=== PATIENT | male | born 1940 | race African-American/Black ===

== ENCOUNTER 2016-04-09 07:04 | Emergency (ER) | payer BC ==
[2016-04-09 07:21] VITALS: BP 167/77
[2016-04-09] MEDS ORDERED: Acetaminophen TAB* 325 MG PO ONE (07:24)
--- NOTE | 2016-04-09 07:34 | UC ---
FLU HPI - HPI Summary HPI Summary: cough, fever last night, ST, feels lousy since yest. 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 States he has been dizzy with this illness and then this morning fell back on the bed. Did not hit his head. No LOC. - History of Current Complaint Chief Complaint: UCRespiratory Stated Complaint: COUGH,THROAT,FEVER Time Seen by Provider: 04/09/16 07:16 Hx Obtained From: Patient Onset/Duration: Gradual Onset, Lasting Days - 2, Still Present, Worse Since - this am Severity Currently: Severe Severity Initially: Moderate Pain Intensity: 9 - head and chest Pain Scale Used: 0-10 Numeric Associated Signs & Symptoms: Positive: Fever, F/C, Myalgia, Cough, Sore Throat, Nasal Congestion, Headache. Negative: Vomiting, Diarrhea Related Hx: Possible Flu/Infectious Exposure - business objects architect - Risk Factors Influenza Risk Factors: Age 65 y/o or Older - Allergy/Home Medications Allergies/Adverse Reactions: Allergies Allergy/AdvReac Type Severity Reaction Status Date / Time Morphine and Related Allergy Severe RASH/HIVES Verified 04/09/16 07:16 Home Medications: Home Medications Colchicine TAB* 0.6 mg PO DAILY PRN 04/09/16 [History Confirmed 04/09/16] PMH/Surg Hx/FS Hx/Imm Hx Endocrine History Of: Reports: Thyroid Disease - Hypothyroidism Denies: Diabetes Cardiovascular History Of: Reports: Cardiac Disorders - Dyslipidemia, Hypertension Respiratory History Of: Denies: COPD, Asthma GI/ History Of: Denies: Ulcer Psychological History Of: Reports: Anxiety - Surgical History Surgical History: Yes Surgery Procedure, Year, and Place: LEFT MASTECTOMY, AND THYMUS GLAND REMOVAL. 4- back surgeries. gallbladder. right eye surgery. bilat eye lens implants. 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 Alcohol Use: None Substance Use Type: None Smoking Status (MU): Former Smoker Type: Cigarettes Length of Time of Smoking/Using Tobacco: 15 yrs Have You Smoked in the Last Year: No When Did the Patient Quit Smoking/Using Tobacco: 15 yrs ago - Immunization History Most Recent Influenza Vaccination: October 2015 Most Recent Pneumonia Vaccination: 2014 Review of Systems Constitutional: Fever, Chills Skin: Negative Eyes: Negative ENT: Sore Throat Respiratory: Cough Cardiovascular: Negative Gastrointestinal: Negative Genitourinary: Negative Motor: Negative Neurovascular: Negative Musculoskeletal: Myalgia Neurological: Headache Psychological: Negative All Other Systems Reviewed And Are Negative: Yes Physical Exam Triage Information Reviewed: Yes Appearance: Ill-Appearing, Pain Distress, Obese Vital Signs: Initial Vital Signs Temp 101.3 F 04/09/16 07:13 Pulse 72 04/09/16 07:13 Resp 18 04/09/16 07:13 BP 167/77 04/09/16 07:13 Pulse Ox 96 04/09/16 07:13 fever, elevated BP noted Vital Signs Reviewed: Yes Eyes: Positive: Conjunctiva Clear ENT: Positive: Pharyngeal erythema, TMs normal Neck exam: Normal Respiratory Exam: Normal Respiratory: Positive: Lungs clear, Normal breath sounds, No respiratory distress Cardiovascular: Positive: RRR, No Murmur, Pulses Normal, Brisk Capillary Refill Abdomen Description: Positive: Nontender, Soft Musculoskeletal: Positive: Strength Intact, ROM Intact, No Edema Neurological: Positive: Alert, Muscle Tone Normal Psychological Exam: Normal Skin Exam: Normal Flu Course/Dx - Course Course Of Treatment: influenza A positive - Differential Dx/Diagnosis Differential Diagnosis/HQI/PQRI: Bronchitis, Influenza, Pneumonia, Upper Respiratory Infection Provider Diagnoses: Influenza A Discharge - Discharge Plan Condition: Stable Disposition: HOME Prescriptions: Oseltamivir CAP* [Tamiflu CAP*] 75 mg PO BID #10 cap Patient Education Materials: Influenza (ED) Forms: *Work Release Referrals: Jean Carlos Velazquez MD [Primary Care Provider] -
== END 2016-04-09 07:53 | disposition home or self-care (01) ==
LOC: UCCORT 07:04
DX: J10.1 Influenza due to other identified influenza virus with other respiratory manifestations (principal); Z88.5 Allergy status to narcotic agent; Z87.891 Personal history of nicotine dependence
CPT/HCPCS: 87502; 99212; A9270-GY; G0463

== ENCOUNTER 2016-12-18 09:52 | Day surgery (SDC) | payer BC ==
[2016-12-18] MEDS ORDERED: Lidocaine 1% MPF wEPI 200,000* 30 ML SDV ONE (10:08)
[2016-12-18] MEDS ORDERED: Bupivacaine 0.25% SDV* 30 ML ONE (10:58)
[2016-12-18 11:55] VITALS: BP 151/96
--- NOTE | 2016-12-19 01:18 | OP ---
OPERATIVE REPORT: DATE OF OPERATION: 12/18/16 - [facility] DATE OF : 44 SURGEON: Rahul Haney MD KEY ACCOUNT MANAGER: MICHELLE Up ANESTHESIOLOGIST: None. ANESTHESIA: Local only with 1% lidocaine with epinephrine and bicarbonate. PRE-OP DIAGNOSES: 1. Right middle trigger finger. 2. Right ring trigger finger. 3. Left middle trigger finger. 4. Left ring trigger finger. POST-OP DIAGNOSES: 1. Right middle trigger finger. 2. Right ring trigger finger. 3. Left middle trigger finger. 4. Left ring trigger finger. 5. Right ring finger tendon sheath lesion. OPERATIVE PROCEDURE: 1. Release of A1 jose, right middle finger. 2. Release of A1 jose, right ring finger. 3. Release of A1 jose, left middle finger. 4. Release of A1 jose, left ring finger. 5. Excision of right ring finger tendon sheath lesion. INDICATIONS: Brady has had injection to trigger fingers that occurred. We had initial planned to do the right middle and ring and the left ring; however, when he came to the surgery center today about a month after I had seen him last , the left middle finger is also starting to trigger. We talked about risks and benefits. He wants to proceed with releases. ESTIMATED BLOOD LOSS: 5 mL. COMPLICATIONS: None. FINDINGS: There was a large nodule and lesion off of the right ring tendon sheath, which was excised and sent to the lab for pathology. DESCRIPTION OF PROCEDURE: Brady was seen in the preoperative holding area. The correct side, site, and procedure were identified and then, I infiltrated the operative areas with 1% lidocaine with epinephrine and bicarbonate. Short time later, we came back to the operating room where the arm was prepped and draped in the usual fashion and time-out was performed. I began by making a 1 cm longitudinal incision over the left ring finger A1 jose. Dissection was carried down bluntly and the soft tissue was freed off of the tendon sheath. The 15 blade was used to longitudinally incise the tendon sheath in line with the flexor tendons. The release was completed proximally and distally with the tenotomy scissors. I then made a 1 cm longitudinal incision over the left middle finger. The soft tissue was released bluntly off of the tendon sheath with the tenotomy scissors and then the Ragnell retractors were used to retract the soft tissue off the tendon sheath. I then incised the A1 jose longitudinally with the 15 blade and the release was extended proximally and distally with the tenotomy scissors. Once I had completed both releases, I had them open and close the hand multiple times. He could not induce any triggering or catching or clicking. We therefore irrigated out the wounds and the skin was closed with 4- 0 nylon suture. The wounds are dressed with Xeroform, 4x4s. The Mastisol was placed around the wounds and the Tegaderm was placed. We then turned our attention to the right hand where I made a 1 cm longitudinal incision over the right middle finger A1 jose. Soft tissue in similar fashion was freed off of the A1 jose and then the A1 jose was incised longitudinally with a 15 blade. This was extended proximally and distally with the tenotomy scissors. I finally made a 1 cm longitudinal incision over the right ring finger A1 jose. The soft tissue was released and there was a quite large nodule/ protruding ganglion cyst on the tendon sheath. I ellipsed this out and excised it and sent it off to the lab for pathology. I then released the remainder of the A1 jose in line with the tendons with a 15 blade and then extended the release proximally and distally with the tenotomy scissors. I then had him flex and extend the fingers multiple times. Again, there was absolutely no triggering. We irrigated out the wounds. Skin was closed with 4-0 nylon suture. Wounds were dressed with Xeroform, 4x4's, and then again, Mastisol was placed all around the wounds and the dressing was secured with a Tegaderm. He was then taken to recovery room in stable condition. [id number]/[facility] #: [id number] CHRIS
== END 2016-12-18 11:56 | disposition home or self-care (01) ==
LOC: OREAST 09:52
PROVIDERS: ATTEND Orthopaedic Surgery Hand Surgery
DX: M67.441 Ganglion, right hand (principal); M65.331 Trigger finger, right middle finger; M65.341 Trigger finger, right ring finger; M65.332 Trigger finger, left middle finger; M65.342 Trigger finger, left ring finger; Z79.899 Other long term (current) drug therapy; I10 Essential (primary) hypertension; E78.5 Hyperlipidemia, unspecified; I49.5 Sick sinus syndrome; Z95.0 Presence of cardiac pacemaker; M10.9 Gout, unspecified; M19.90 Unspecified osteoarthritis, unspecified site
CPT/HCPCS: 88304; J2001

== ENCOUNTER 2017-07-17 15:23 | Emergency (ER) | payer BC ==
--- OUTSIDE RECORDS SUMMARY | 2017-07-17 16:23 | XMS REPORT ---
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 Active Onset: 10/28/2010 Disorder of thyroid gland Fred Bejarano M.D. Active Family History Date Family Member(s) Problem(s) Comments First Brother Diabetes Paternal Grandmother Diabetes Social History Type Date Description Comments Marital Status Cigarette Use Quit 15 Years Ago ETOH Use Occasionally consumes alcohol Recreational Drug Use Never Used Drugs Smoking Patient is a former smoker Allergies, Adverse Reactions, Alerts Date Description Reaction Status Severity Comments 03/15/2007 Morphine active 05/08/2009 Bee Sting ANAPHYLACTIC active Medications Medication Date Status Form Strength Qnty SIG Indications Ordering Provider Fluticasone 07/30 Active Suspension 50mcg/Act 1unit 2 sprays Bejarano s each leandra Ibarra MJillianDJillian every day Omeprazole 04/[address] 40mg 30cap 1 po qd s Generic Fred, Please M.DJillian Lisinopril Active Tablets 40mg 1 PO qd Unknown /0000 Levothyroxine Active Tablets 100mcg 1 PO qd Unknown Sodium /0000 Sertraline HCL Active Tablets 100mg Unknown /0000 Nifedipine ER Active Tablets ER 90mg 24HR Hydralazine HCL Active Tablets 50mg Unknown Zolpidem Tartrate Active Tablets 10mg Unknown Allopurinol Active Tablets 300mg 1 by mouth Unknown every day Lorazepam Active Tablets 0.5mg 1 by mouth every 6 hours as needed Meloxicam Active Tablets 7.5mg 1 by mouth Unknown every day Oxycodone-Acetami Active Tablets 5-325mg 1-2 every Unknown nophen 6 hours as needed Tizanidine HCL Active Capsules 4mg 1 cap by mouth three times a day as needed Bystolic Active Tablets 1 by mouth every day Rosuvastatin Active Tablets Unknown Ciprodex 12/15 Hx Suspension 0.3-0.1% 1unit 5 gtts s right ear Fred, - bid M.D. 06/27 Prednisone 08/05 Hx Tablets 20mg 5tabs 1 po qd x 5 days Fred, - M.D. 09/05 Percocet 08/03 Hx Tablets 5-325mg 32tab 1-2 po q 4 s hours prn Fred, - for pain M.D. 09/05 Cephalexin 07/29 Hx Capsules 500mg 21cap one tab s three Fred, - times M.D. 09/05 Lorazepam 03/07 Hx Tablets 0.5mg 30tab one tab hs s Fred, - M.D. 10/22 Prednisone 11/27 Hx Tablets 10mg 30tab 1 po qam s Fred, - M.D. 05/12 Prednisone 11/12 Hx Tablets 20mg 15tab 1 po qd s Fred, - M.D. 05/12 Zolpidem Tartrate 07/01 Hx Tablets 10mg 30tab Bejarano s Fred, - M.D. 10/22 Zolpidem Tartrate 06/17 Hx Tablets 5mg 30tab one tab at s night Fred, - M.D. 07/01 Ativan 05/08 Hx Tablets 0.5mg 40tab take 1 s tab.p.o. 1 Fred, - hr. before M.D. 03/[place] if not effective take one more 2 hr. after the first pill Astepro 01/21 Hx Solution 137mcg/Sp 30ml 2 sprays ray each Fred, - nostril M.D. 03/07 once a day Singulair 07/11 Hx Tablets 10mg 30tab 1 PO qd X s 1 Mo Fred - M.D. 01/14 Nasacort Aq 07/11 Hx Aerosol 55mcg/Act 1unit 2 Sprays s Both Fred, - Nostrils M.D. 05/12 qd X 1Mo Synthroid Hx Tablets 100mcg 90tab 1 PO qd Bejarano, s Fred, - M.D. 03/07 Zocor Hx Tablets 40mg Unknown / - 03/[address] 40mg 30cap 1 PO qd 1 Unknown / s Month - 05/08 Hydrochlorot Hx 50mgS Unknown / - 10/22 Pepcid Hx Tablets 20mg Qday Unknown / - 10/28 Vicodin Hx Tablets 5-500mg 40tab 1-2 po q4h Unknown / s prn - 05/12 Zoloft Hx Tablets 100mg Unknown / - 03/07 Metoprolol Hx Tablets ER 50mg daily Unknown Succinate ER /0000 24HR - 03/07 Cyclobenzaprine Hx Tablets 10mg 30tab 1 by mouth Unknown HCL / s three - times a 03/07 day needed muscle spasm Simvastatin Hx Tablets 80mg hs Unknown /0000 - 10/04 Potassium / Hx Tablets ER 20Meq 60tab daily Unknown Chloride ER /0000 s - 10/15 Lorazepam Hx Tablets 0.5mg prn Unknown /0000 - 03/07 Metoprolol Hx Tablets ER 100mg Unknown Succinate ER /0000 24HR - 10/22 Flexeril 00 Hx Tablets 10mg 180ta Unknown /0000 bs - 10/22 Vital Signs Date Vital Result Comment 06/23/2017 Weight 218.00 lb Height 66 inches 5'6" BMI (Body Mass Index) 35.2 kg/m2 BP Systolic 161 mmHg BP Diastolic 96 mmHg Heart Rate 74 /min O2 % BldC Oximetry 95 % Body Temperature 97.6 F Benton Score 2 Pain Level 0 10/15/2016 Weight 208.00 lb Height 66 inches 5'6" BMI (Body Mass Index) 33.6 kg/m2 Heart Rate 68 /min O2 % BldC Oximetry 98 % Body Temperature 97.6 F Pain Level 0 10/05/2016 Weight 208.00 lb Height 66 inches 5'6" BMI (Body Mass Index) 33.6 kg/m2 BP Systolic 136 mmHg BP Diastolic 80 mmHg Heart Rate 77 /min O2 % BldC Oximetry 90 % Body Temperature 97.6 F Pain Level 0 04/02/2016 Weight 213.00 lb Height 66 inches 5'6" BMI (Body Mass Index) 34.4 kg/m2 BP Systolic 148 mmHg BP Diastolic 98 mmHg Heart Rate 91 /min O2 % BldC Oximetry 96 % Body Temperature 97.8 F Benton Score 2 Pain Level 0 01/31/2016 Weight 211.00 lb Height 66 inches 5'6" BMI (Body Mass Index) 34.1 kg/m2 BP Systolic 128 mmHg BP Diastolic 82 mmHg Heart Rate 73 /min O2 % BldC Oximetry 98 % Body Temperature 97.8 F Benton Score 3 09/16/2015 Weight 210.00 lb Height 66 inches 5'6" BMI (Body Mass Index) 33.9 kg/m2 BP Systolic 138 mmHg BP Diastolic 86 mmHg Heart Rate 94 /min O2 % BldC Oximetry 83 % Body Temperature 97.6 F 06/26/2015 BP Systolic 152 mmHg BP Diastolic 90 mmHg Heart Rate 64 /min O2 % BldC Oximetry 96 % Body Temperature 98.4 F 04/30/2015 Weight 212.00 lb Height 66 inches 5'6" BMI (Body Mass Index) 34.2 kg/m2 BP Systolic 164 mmHg BP Diastolic 98 mmHg Heart Rate 91 /min O2 % BldC Oximetry 96 % Body Temperature 98.5 F 11/13/2014 Weight 207.00 lb Height 66 inches 5'6" BMI (Body Mass Index) 33.4 kg/m2 Body Temperature 98.5 F 10/23/2014 Weight 207.00 lb Height 66 inches 5'6" BMI (Body Mass Index) 33.4 kg/m2 BP Systolic 136 mmHg BP Diastolic 88 mmHg Heart Rate 71 /min O2 % BldC Oximetry 98 % Body Temperature 97.8 F Pain Level 0 07/30/2014 Weight 206.12 lb Height 66 inches 5'6" BMI (Body Mass Index) 33.3 kg/m2 BP Systolic 164 mmHg BP Diastolic 80 mmHg Heart Rate 75 /min O2 % BldC Oximetry 97 % Body Temperature 98.1 F Benton Score 4 Pain Level 0 06/27/2013 Weight 210.38 lb Height 66 inches 5'6" BMI (Body Mass Index) 34.0 kg/m2 BP Systolic 122 mmHg BP Diastolic 72 mmHg Heart Rate 63 /min O2 % BldC Oximetry 97 % Body Temperature 98.1 F Benton Score 3/24 10/12/2012 Weight 211.00 lb Height 66 inches 5'6" BMI (Body Mass Index) 34.1 kg/m2 BP Systolic 150 mmHg BP Diastolic 100 mmHg Heart Rate 57 /min O2 % BldC Oximetry 97 % 09/05/2012 Weight 207.00 lb Height 66 inches 5'6" BMI (Body Mass Index) 33.4 kg/m2 BP Systolic 122 mmHg BP Diastolic 88 mmHg Heart Rate 88 /min O2 % BldC Oximetry 94 % Body Temperature 97.2 F 08/05/2012 Weight 216.25 lb Height 66 inches 5'6" BMI (Body Mass Index) 34.9 kg/m2 BP Systolic 142 mmHg Just took his med. BP Diastolic 100 mmHg Just took his med. Heart Rate 67 /min O2 % BldC Oximetry 97 % Body Temperature 97.9 F 05/17/2012 Weight 211.00 lb Height 66 inches 5'6" BMI (Body Mass Index) 34.1 kg/m2 BP Systolic 138 mmHg BP Diastolic 86 mmHg Heart Rate 74 /min O2 % BldC Oximetry 96 % Body Temperature 97.2 F 03/07/2012 Weight 216.00 lb Height 66 inches 5'6" BMI (Body Mass Index) 34.9 kg/m2 BP Systolic 166 mmHg BP Diastolic 90 mmHg Body Temperature 98.4 F 05/13/2011 Weight 203.00 lb Height 66 inches 5'6" BMI (Body Mass Index) 32.8 kg/m2 BP Systolic 120 mmHg BP Diastolic 84 mmHg Heart Rate 50 /min O2 % BldC Oximetry 92 % Body Temperature 96.3 F 11/12/2010 Weight 214.12 lb Height 66 inches 5'6" BMI (Body Mass Index) 34.6 kg/m2 Heart Rate 49 /min O2 % BldC Oximetry 98 % Body Temperature 97.2 F 10/28/2010 Weight 207.00 lb Height 66 inches 5'6" BMI (Body Mass Index) 33.4 kg/m2 BP Systolic 140 mmHg BP Diastolic 86 mmHg Heart Rate 56 /min O2 % BldC Oximetry 95 % Body Temperature 97.1 F 05/12/2010 Weight 207.50 lb Height 66 inches 5'6" BMI (Body Mass Index) 33.5 kg/m2 BP Systolic 130 mmHg BP Diastolic 80 mmHg Heart Rate 76 /min Body Temperature 97.0 F 01/14/2009 Weight 212.00 lb Height 66 inches 5'6" BMI (Body Mass Index) 34.2 kg/m2 BP Systolic 133 mmHg BP Diastolic 88 mmHg Heart Rate 96 /min O2 % BldC Oximetry 98 % Body Temperature 97.0 F 16.5 Neck 07/12/2007 Weight 216.00 lb Height 67 inches 5'7" BMI (Body Mass Index) 33.8 kg/m2 BP Systolic 124 mmHg BP Diastolic 86 mmHg 05/02/2007 Weight 219.00 lb Height 67 inches 5'7" BMI (Body Mass Index) 34.3 kg/m2 BP Systolic 142 mmHg BP Diastolic 96 mmHg Heart Rate 82 /min O2 % BldC Oximetry 97 % 03/15/2007 Weight 219.00 lb Height 67 inches 5'7" BMI (Body Mass Index) 34.3 kg/m2 BP Systolic 134 mmHg BP Diastolic 86 mmHg Heart Rate 85 /min O2 % BldC Oximetry 94 % Results Test Date Test Result H/L Range Note Basic Metabolic Panel 07/22/2012 Glucose 97 mg/dL 76-115 BUN 27 mg/dL High 5-23 Creatinine 1.6 mg/dL High 0.5-1.4 Glom Filtration Rate, Estimate 46 mL/min >60 If 55 mL/min >60 1 BUN/Creat 16.8 ratio Sodium 141 mmol/L 136-145 Potassium 4.4 mmol/L 3.5-5.1 Chloride 103 mmol/L 98-107 Carbon Dioxide 30 mEq/L High 18-29 Anion Gap 12 mEq/L 8-16 Calcium 9.7 mg/dL 8.5-10.1 CBC 07/22/2012 White Blood Count 5.8 K/uL 3.4-10.5 Red Blood Count 4.76 M/uL 4.20-5.80 Hemoglobin 13.9 gm/dL 12.8-17.0 Hematocrit 42.0 % 38.0-48.0 Mean Cell Volume 88.2 fl 80.0-96.0 Mean Corpuscular HGB 29.2 pg 27.0-33.0 Mean Corpuscular HGB Conc 33.1 g/dL 31.7-36.0 Platelet Count 146 K/uL Low 150-400 Red Cell Distri Width %CV 13.7 % 11.6-15.8 Mean Platelet Volume 12.4 fL High 6.6-10.6 Urine Screen 07/22/2012 Urine Color YELLOW Yellow Urine Clarity CLEAR Clear Urine Glucose - Dipstick NEGATIVE mg/dL Negative Urine Bilirubin - Dipstick NEGATIVE Negative Urine Ketone NEGATIVE mg/dL Negative Urine Specific [place] 1.015 1.010-1.030 Urine Blood NEGATIVE Negative Urine PH 6.5 6.5-7.5 Urine Protein - Dipstick NEGATIVE mg/dL Negative Urine Urobilinogen - Dipstick 1.0 E.U./dL 0.2-1.0 Urine Nitrite - Dipstick NEGATIVE Negative Urine Leuk Esterase NEGATIVE Negative TSH+Free T4 10/28/2010 Thyroid Stim Hormone 2.56 uIU/mL 0.49-4.67 2 Free T4 1.04 ng/dL 0.60-1.20 3 Laboratory test finding 10/28/2010 Thyroid Stim Hormone 2.56 uIU/mL 0.49- 4.67 4 Free T4 1.04 ng/dL 0.71-1.85 5 1 Note: Persistent reduction for 3 months or more in an eGFR <60 mL/min/1.73 m2 defines CKD. Patients with eGFR values >/=60 mL/min/1.73 m2 may also have CKD if evidence of persistent proteinuria is present. The original MDRD equation for estimated GFR is not valid for patients less than 18 years of age. Additional information may be found at www.kdoqi.org. [email or web address] QUERY: @EMR Pat ID: [id number] QUERY: @EMR Req #: [id number] QUERY: @EMR Pat ID: [id number] QUERY: @EMR Req #: [id number] QUERY: @EMR Pat ID: [id number] QUERY: @EMR Req #: [id number] REF range corrected and changed from 0.60-1.20 to 0.71-1.85 Procedures Date CPT Code Description Status 09/16/2015 47090 Tympanometry Completed 09/16/2015 07626 Tympanometry Completed 09/16/2015 59899 Audiometry, Comprehensive Completed 09/16/2015 22604 Audiometry, Comprehensive Completed 06/26/2015 84132 Tympanometry Completed 06/26/2015 72129 Tympanometry Completed 06/26/2015 45208 Audiometry, Comprehensive Completed 06/26/2015 22394 Audiometry, Comprehensive Completed 05/10/2015 99280 Anesthesia, Tympanotomy Completed 05/10/2015 34976 Tympanostomy, Gen. Anesth. Completed 11/13/2014 34099 Tympanometry Completed 11/13/2014 82308 Tympanometry Completed 11/13/2014 60874 Audiometry, Comprehensive Completed 11/13/2014 40640 Audiometry, Comprehensive Completed 11/09/2014 40656 Tympanostomy, Gen. Anesth. Completed 11/09/2014 15140 Anesthesia, Tympanotomy Completed 10/23/2014 79583 Audiometry, Comprehensive Completed 10/23/2014 70593 Audiometry, Comprehensive Completed 10/23/2014 93005 Tympanometry Completed 10/23/2014 24113 Tympanometry Completed 07/30/2014 54870 Tympanometry Completed 07/30/2014 66050 Tympanometry Completed 07/30/2014 38313 Audiometry, Comprehensive Completed 07/30/2014 91386 Audiometry, Comprehensive Completed 10/12/2012 29652 Tympanostomy, Local/Topical Anesthesia Completed 07/29/2012 39309 Endoscopy Nasal/Sinus W/Med Or Inf Orbital Wall Completed Decompression 07/29/2012 44645 Endoscopy Nasal/Sinus W/Med Or Inf Orbital Wall Completed Decompression 07/29/2012 17648 Stereotactic Computer-Assisted, Cranial, Extradural Completed 07/29/2012 39030 Stereotactic Computer-Assisted, Cranial, Extradural Completed 03/07/2012 74371 Nasal Endoscopy, Diag. Completed 10/28/2010 79112 Ultrasound Head/Neck Completed 04/10/2009 81829 Fiberoptic Laryngoscopy,Diag. Completed 07/12/2007 97984 Acoustic Reflex Testing Completed 07/12/2007 69363 Tympanometry Completed 07/12/2007 78464 Audiometry, Comprehensive Completed 06/29/2007 32398 Sleep Stage 4 Or More Cpap Titra Completed 03/15/2007 82293 Fiberoptic Laryngoscopy,Diag. Completed Encounters Type Date Location Provider CPT E/M Dx Office Visit 10/15/2016 1:00p [place] [address] Z96.22 Office Visit 10/05/2016 3:15p Main Office Fred Bejarano M.D. 91598 G47.33 E03.9 Z96.22 Office Visit 04/02/2016 10:15a [place] [address] G47.33 Office Visit 01/31/2016 11:45a Main Office Fred Bejarano M.D. 09392 G47.33 K21.9 E03.9 Office Visit 09/16/2015 3:00p Main Office Fred Bejarano M.D. 10450 H90.3 H66.93 Office Visit 06/26/2015 11:30a [place] [address] H90.3 H69.93 Office Visit 04/30/2015 4:00p Main Office Fred Bejarano M.D. 02800 H66.93 H90.6 Office Visit 10/23/2014 8:00a [place] [address] 389.22 381.81 Office Visit 07/30/2014 10:15a [place] [address] 327.23 381.81 Office Visit 06/27/2013 10:15a [place] [address] 327.23 Office Visit 09/05/2012 1:30p [place] [address] 376.30 381.01 Office Visit 05/17/2012 7:15a Main Office Fred Bejarano M.D. 10623 376.30 470 327.23 Office Visit 03/07/2012 4:15p Main Office Fred Bejarano M.D. 26659 376.30 470 327.23 244.9 780.52 Office Visit 05/13/2011 10:45a Main Office Fred Bejarano M.D. 56818 376.30 470 327.23 244.9 780.52 Office Visit 11/12/2010 10:45a Main Office Fred Bejarano M.D. 20375 376.30 470 327.23 Office Visit 10/28/2010 10:00a Main Office Fred Bejarano M.D. 34768 376.30 246.9 244.9 Office Visit 05/12/2010 10:00a Main Office Fred Bejarano M.D. 65389 327.23 780.52 Office Visit 06/17/2009 11:30a Main Office Fred Bejarano M.D. 48088 327.23 780.52 Office Visit 05/08/2009 10:00a Main Office Fred Bejarano M.D. 23101 327.23 780.53 530.81 470 389.03 381.81 300.09 Office Visit 04/10/2009 10:00a Main Office Fred Bejarano M.D. 26498 327.23 780.53 530.81 Office Visit 01/14/2009 10:00a Main Office Fred Bejarano M.D. 31059 327.23 780.53 470 Office Visit 07/12/2007 9:45a Main Office Fred Bejarano M.D. 69320 327.23 389.03 381.81 Office Visit 05/23/2007 10:30a Main Office Fred Bejarano M.D. 77810 327.23 Office Visit 05/02/2007 9:30a Main Office Fred Bejarano M.D. 72217 327.23 Office Visit 03/15/2007 9:45a Main Office Fred Bejarano M.D. 68960 327.23 750.15 Plan of Care No Information Available
--- OUTSIDE RECORDS SUMMARY | 2017-07-17 16:23 | XMS REPORT ---
:1940 External Reference #:[id number] Author Organization [facility] 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 , Active FACC Onset: 01/30/2016 Paroxysmal supraventricular Isrrael Selby M.D., Active tachycardia FACC Onset: 01/30/2016 Cardiac pacemaker in situ Isrrael Selby M.D., Active FACC Onset: 09/13/2015 Hyperlipidemia Isrrael Selby M.D., Active FACC Onset: 09/13/2015 Essential hypertension Isrrael Selby M.D., Active FACC Onset: 09/13/2015 Bradycardia, unspecified Isrrael Selby M.D., Active FACC Onset: 08/08/2015 Palpitations Isrrael Selby M.D., Active FACC Onset: 08/08/2015 Dyspnea Isrrael Selby M.D., Active FACC Family History Date Family Member(s) Problem(s) Comments General Non Contributory : (age 43 Father due to Cancer Years) Mother due to Ovarian Cancer () : (age 72 Mother due to No known family Years) history of CAD Onset: (age 70 Years) First Brother CAD needed CABG Social History Type Date Description Comments Lives With Diet Healthy, Well Balanced Occupation Currently Working ADL's/IADL's Independent with all ADL's Cigarette Use Quit 1989 ETOH Use Denies alcohol use Recreational Drug Use Denies Drug Use Daily Caffeine Current Caffeine User 3 cups daily Allergies, Adverse Reactions, Alerts Date Description Reaction Status Severity Comments 02/05/2010 Morphine active Rash, Itching 02/05/2010 Bee Sting active SOB, Swelling 01/29/2014 Demerol active 01/29/2014 Meperidine active Medications Medication Date Status Form Strength Qnty SIG Indications Ordering Provider Isosorbide Active Tablets ER 30mg 30tabs 1 by R06.02 Quynh Mononitrate ER 018 24HR mouth Simonetta every Rendon, day MSN, RESERVATIONIST Clopidogrel Active Tablets 75mg 30tabs 1 by R06.02 Quynh Bisulfate 018 mouth Simonetta every Rendon, day MSN, RESERVATIONIST Aspirin Active Tablets DR 81mg 1 by R06.02 Quynh 018 mouth Simonetta every Rendon, day MSN, RESERVATIONIST Bystolic Active Tablets 20mg 30tabs 1 by I47.1 Quynh 016 mouth Simonetta every Rendon, day MSN, RESERVATIONIST I47.2 I10 Nifedical XL 06/10/2015 Active Tablets ER 60mg 60tabs 1 by mouth Isrrael Figueroa 24HR daily Grace Selby, [facility] Levothyroxine Active Tablets 125mcg 1 po qd Unknown Sodium Lisinopril Active Tablets 40mg 1 po qd Unknown Sertraline HCL Active Tablets 100mg 1 1/2 po Unknown qd Ambien Active Tablets 10mg 15tabs 1 by mouth Unknown every night at bedtime as needed Omeprazole Active Capsules DR 20mg 90caps 1 by mouth Unknown every day Lorazepam Active Tablets 0.5mg 30tabs 1 by mouth Unknown as needed Allopurinol Active Tablets 300mg 1 by mouth Unknown every day Hydralazine HCL Active Tablets 50mg take 1/2 Unknown tablet by mouth three times a day Meloxicam Active Tablets 7.5mg 1 by mouth Unknown bid Rosuvastatin Active Tablets 40mg 1 by mouth Unknown Calcium every day Colchicine Active Capsules 0.6mg 1 tab by Unknown mouth every 2hr as needed not to take more than 4 per day Bystolic 08/23/2015 - Hx Tablets 10mg 30tabs 1 by mouth I4 Errol Trevino, 12/31/2015 every day 7. 1 I47.2 I10 Cyclobenzaprine HCL - Hx Tablets 10mg 1 po tid Unknown 06/10/2015 prn spasms Tramadol HCL - Hx Tablets 50mg 1 po as Unknown 06/10/2015 needed for pain Metoprolol Succinate ER - Hx Tablets ER 50mg 1 1/2 po Unknown 08/14/2015 24HR qd Hydrochlorothiazide - Hx Tablets 50mg 1 po qd Unknown 06/10/2015 Simvastatin Hx Tablets 80mg 90ta 1 po qd Unknown bs Zoloft Hx Tablets 25mg 30ta by mouth Unknown bs every day Potassium - Hx Tablets 99mg 1 by mouth Unknown 06/10/2015 every day Epipen 2-Ady Hx Solution 0.3mg/0. Unknown Auto-Inject 3ML Vital Signs Date Vital Result Comment 06/23/2017 BP Systolic Sitting Right Arm 148 mmHg BP Diastolic Sitting Right Arm 80 mmHg Heart Rate 84 /min Respiratory Rate 16 /min Height 67 inches 5'7" Weight 219.00 lb BMI (Body Mass Index) 34.3 kg/m2 BSA (Body Surface Area) 2.10 m2 [place] body weight in kilograms 67 12/30/2016 BP Systolic Sitting Right Arm 142 mmHg BP Diastolic Sitting Right Arm 86 mmHg Heart Rate 84 /min Respiratory Rate 16 /min Height 67 inches 5'7" Weight 214.00 lb BMI (Body Mass Index) 33.5 kg/m2 BSA (Body Surface Area) 2.08 m2 [place] body weight in kilograms 67 07/30/2016 BP Systolic Sitting Right Arm 138 mmHg BP Diastolic Sitting Right Arm 86 mmHg Heart Rate 62 /min Respiratory Rate 16 /min Height 67 inches 5'7" Weight 214.00 lb BMI (Body Mass Index) 33.5 kg/m2 BSA (Body Surface Area) 2.08 m2 [place] body weight in kilograms 67 01/30/2016 BP Systolic Sitting Right Arm 142 mmHg BP Diastolic Sitting Right Arm 110 mmHg BP Systolic Sitting Left Arm 155 mmHg BP Diastolic Sitting Left Arm 105 mmHg Heart Rate 81 /min Height 67 inches 5'7" Weight 210.00 lb BMI (Body Mass Index) 32.9 kg/m2 BSA (Body Surface Area) 2.06 m2 12/31/2015 BP Systolic Sitting Right Arm 148 mmHg BP Diastolic Sitting Right Arm 110 mmHg BP Systolic Sitting Left Arm 152 mmHg BP Diastolic Sitting Left Arm 110 mmHg Heart Rate 84 /min Height 67 inches 5'7" Weight 210.00 lb BMI (Body Mass Index) 32.9 kg/m2 BSA (Body Surface Area) 2.06 m2 09/13/2015 BP Systolic Sitting Right Arm 140 mmHg BP Diastolic Sitting Right Arm 82 mmHg Heart Rate 56 /min Respiratory Rate 16 /min Height 67 inches 5'7" Weight 208.00 lb BMI (Body Mass Index) 32.6 kg/m2 BSA (Body Surface Area) 2.06 m2 08/23/2015 BP Systolic 150 mmHg BP Diastolic 100 mmHg Heart Rate 78 /min Height 67 inches 5'7" Weight 210.00 lb BMI (Body Mass Index) 32.9 kg/m2 BSA (Body Surface Area) 2.06 m2 08/08/2015 BP Systolic Standing Resting Right Arm 140 mmHg BP Diastolic Standing Resting Right Arm 90 mmHg Heart Rate 56 /min Height 67 inches 5'7" Weight 214.00 lb BMI (Body Mass Index) 33.5 kg/m2 BSA (Body Surface Area) 2.08 m2 [place] body weight in kilograms 67 06/10/2015 BP Systolic Sitting Right Arm 130 mmHg BP Diastolic Sitting Right Arm 90 mmHg Heart Rate 63 /min Respiratory Rate 16 /min Height 67 inches 5'7" Weight 210.00 lb BMI (Body Mass Index) 32.9 kg/m2 BSA (Body Surface Area) 2.06 m2 02/05/2010 Height 67 inches 5'7" Weight 214.00 lb BMI (Body Mass Index) 33.5 kg/m2 Results Test Date Test Result H/L Range Note TSH Reflex FT4 And/Or 01/02/2016 Thyroid Stim Hormone 1.81 uIU/mL 0.30- 4.20 1 FT3 Reflex add FT3? Y 1 Reflex add FT4? Y 1 1 E03.9 Procedures Date CPT Code Description Status 06/15/2017 70620 Dual Pacemaker Programming Anayisis, Review And Report Completed 12/15/2016 20171 Cardioversion/Defibrillation Dual Pacemaker Completed 08/24/2016 98769 Stress Test Interpre And Report Only Completed 08/24/2016 92359 Stress Test Physician Super Only Completed 08/24/2016 68290 Myocardial Imaging Tomographic Multiple Study At Rest Completed Or Stress 07/30/2016 79999 EKG-Tracing And Report Completed 07/06/2016 24500 Remote Interrigation Report Interr. Single, Dual Or Completed Multiple Lead 07/06/2016 44151 Remote Interrigation Report Interr. Single, Dual Or Completed Multiple Lead 07/06/2016 60450 Pacemaker/Cardio-Defibrillator Remote Data Acquistion Completed 07/06/2016 95957 Pacemaker/Cardio-Defibrillator Remote Data Acquistion Completed 03/09/2016 91941 Pacemaker/Cardio-Defibrillator Remote Data Acquistion Completed 03/09/2016 65789 Pacemaker/Cardio-Defibrillator Remote Data Acquistion Completed 03/09/2016 74243 Remote Interrigation Report Interr. Single, Dual Or Completed Multiple Lead 03/09/2016 03520 Remote Interrigation Report Interr. Single, Dual Or Completed Multiple Lead 12/31/2015 27050 Dual Pacemaker Programming Anayisis, Review And Report Completed 12/31/2015 86720 Dual Pacemaker Programming Anayisis, Review And Report Completed 10/01/2015 49712 Exc.Other Brian.Les/0.5cm or less Completed 09/03/2015 13428 Dual Pacemaker Programming Anayisis, Review And Report Completed 09/03/2015 83457 Dual Pacemaker Programming Anayisis, Review And Report Completed 08/23/2015 23904 Dual Pacemaker Programming Anayisis, Review And Report Completed 08/23/2015 87987 EKG-Tracing And Report Completed 08/16/2015 69343 EKG Interpretation And Report Only Completed 08/15/2015 04689 Insert or replace pacemaker with electrodes, atrial Completed & ventricle 06/19/2015 60654 Holter Monitor 24HR Inter/Report Completed 06/18/2015 52455 Echocardiogram Complete Completed 06/10/2015 24287 EKG-Tracing And Report Completed 07/29/2012 01780 Anesthesia, Intracranial Surgery Not Otherwise Spec Completed 07/27/2012 11289 Echocardiogram Complete Completed 07/22/2012 94910 EKG Interpretation And Report Only Completed 11/20/2011 0000 Due To Insurance Completed 04/17/2011 Asp/Injection small joint/bursa (ie-fingers,toes) Completed 03/24/2011 60560 Anesthesia, Lens Surgery Completed 03/10/2011 18096 Anesthesia, Lens Surgery Completed 09/23/2009 66850 Event Monitor Inter/Review Only Completed Encounters Type Date Location Provider CPT E/M Dx Office Visit 06/23/2017 1:40p Cardiology Office Quynh Franzbrian Rendon, 96221 R06.02 MSN, RESERVATIONIST I47.2 I47.1 I10 E78.5 I49.5 Z95.0 Office Visit 12/30/2016 10:00a Cardiology Office Quynh Franzbrian Rendon, 33685 I47.1 MSN, RESERVATIONIST I49.5 I47.2 I10 E78.5 Z95.0 Office Visit 07/30/2016 9:40a Cardiology Office Qyunh Franzbrian Rendon, 19644 R06.02 MSN, RESERVATIONIST I47.2 R00.1 I10 E78.5 Z95.0 Office Visit 01/30/2016 10:20a Cardiology Office Isrrael Selby M.D., 87032 I10 FACC R00.1 Z95.0 I47.1 I47.2 Office Visit 12/31/2015 11:00a Cardiology Office Quynh Franzbrian Rendon, 16725 I47.1 MSN, RESERVATIONIST I47.2 I10 E78.5 Z95.0 E03.9 R00.1 Office Visit 09/13/2015 11:40a Cardiology Office Isrrael Selby, 82754 R00.1 Grace, FACC I10 E78.5 Office Visit 08/23/2015 10:00a [place] [address] R00.1 I49.5 I48.0 I10 Z95.0 Office Visit 08/16/2015 1:58p Cardiology Office Isrrael Selby, 12803 R00.1 M.D., [facility] R00.1 Office Visit 08/14/2015 9:41a Cardiology Office Isrrael Selby, 70634 R06.02 M.D., [facility] R00.1 Office Visit 08/14/2015 11:00a Surgical Office Marek Saldana 76825 I49.5 Grace Higginbotham Office Visit 08/08/2015 11:40a Cardiology Office Isrrael Selby, 95148 R06.02 M.D., [facility] R00.2 Office Visit 06/10/2015 10:00a Cardiology Office Isrrael Selby, 84057 R00.2 M.Govind, [facility] R94.31 R06.02 I10 Office Visit 02/13/2014 8:44a [facility] [address] 562.11 [facility] Office Visit 02/24/2010 9:30a Orthopaedic Office Jin Castillo, 65538 727.61 MRaiza, FACS 715.11 Office Visit 02/05/2010 11:00a Orthopaedic Office Jin Castillo M.D., 23319 722.4 FACS 723.4 719.41 E884.2 Plan of Care Future Appointment(s):11/02/2017 9:40 am - MICHELLE Boland at Cardiology Vhioiv8306/23/2017 - Quynh Rendon, MSN, FNPR06.02 Shortness of breathNew Medication:Isosorbide Mononitrate ER 30 mgClopidogrel Bisulfate 75 mgAspirin 81 mgNew Labs:CBS W/Automated DiffNew Orders:Cardiac Catheterization With Poss. InterventionComments:I will start him on Imdur today and will set up the cath. Labs done on 06/16 did not include the CBC. Will start the ASA and Plavix.I47.2 Ventricular tachycardiaComments:Monitor.I47.1 Supraventricular tachycardiaComments:Monitor.I10 Essential (primary) hypertensionComments:As above.E78.5 Hyperlipidemia, unspecifiedComments:No changes.I49.5 Sick sinus syndromeComments:Monitor.Z95.0 Presence of cardiac pacemakerComments:Will follow in our pacer clinic, per protocol.AllFollow up:After cardiac catheterization is completed.
--- NOTE | 2017-07-17 16:43 | UC ---
Shortness of Breath HPI - HPI Summary HPI Summary: C/O upper back pain x 1 month getting worse. Now with SOB and diaphoresis. 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 No nausea. - History of Current Complaint Stated Complaint: RIGHT UPPER BACK PAIN O3EBVPV Time Seen by Provider: 07/17/17 16:37 Hx Obtained From: Patient Onset/Duration: Gradual Onset, Lasting Weeks - 4, Worse Since - onset Timing: Constant Current Severity: Moderate Dyspnea At: Rest Aggrevating Factors: Nothing Alleviating Factors: Nothing Associated Signs & Symptoms: Positive: Diaphoresis - Risk Factors Cardiac: Prior DE - Allergy/Home Medications Allergies/Adverse Reactions: Allergies Allergy/AdvReac Type Severity Reaction Status Date / Time MS Morphine and Related Allergy Severe RASH/HIVES Verified 12/18/16 10:32 [Morphine and Related] PMH/Surg Hx/FS Hx/Imm Hx Endocrine History: Hypothyroidism, Dyslipidemia Cardiovascular History: Cardiac Disease, Pacemaker/ICD GI/ History: Gastroesophageal Reflux - Surgical History Surgical History: Yes Surgery Procedure, Year, and Place: LEFT MASTECTOMY, AND THYMUS GLAND REMOVAL. 4- back surgeries. gallbladder. right eye surgery. bilat eye lens implants. R rotator cuff - Family History Known Family History: Positive: None, Hypertension - Social History Occupation: Retired Lives: With Family Alcohol Use: None Substance Use Type: None Smoking Status (MU): Former Smoker Type: Cigarettes Length of Time of Smoking/Using Tobacco: 15 yrs Have You Smoked in the Last Year: No When Did the Patient Quit Smoking/Using Tobacco: 15 YEARS AGO - Immunization History Most Recent Influenza Vaccination: October 2015 Most Recent Pneumonia Vaccination: 2014 Review of Systems Constitutional: Fatigue Respiratory: Shortness Of Breath Cardiovascular: Chest Pain - back pain primarily Musculoskeletal: Myalgia - upper back Is Patient Immunocompromised?: No All Other Systems Reviewed And Are Negative: Yes Physical Exam Triage Information Reviewed: Yes Appearance: No Pain Distress, Ill-Appearing, Obese Vital Signs Reviewed: Yes Eyes: Positive: Conjunctiva Inflamed Neck exam: Normal Respiratory: Positive: Lungs clear Cardiovascular: Positive: RRR, No Murmur Musculoskeletal Exam: Normal Neurological: Positive: Other: - left sided facial weakness. Psychological Exam: Normal Skin Exam: Normal Diagnostics - EKG Cardiac Rate: NL Cardiac Rhythm: Other Rhythm: New - paced Ectopy: PVCs - lateral t wave inversions. ST Segment: Non-Specific - lateral. Shortness of Breath Dx - Differential Dx/Diagnosis Differential Diagnosis/HQI/PQRI: DE Provider Diagnoses: Angina - Physician Notification/Consults Discussed Patient Care With: Julisa Weston Time Discussed With Above Provider: 16:48 Instructed by Provider To: Transfer - to [facility] Discharge - Sign-Out/Discharge Documenting (check all that apply): Discharge/Admit/Transfer - Discharge Plan Condition: Critical Disposition: TRANS HIGHER LVL OF CARE FAC Referrals: Jean Carlos Velazquez MD [Primary Care Provider] - - Billing Disposition and Condition Condition: CRITICAL Disposition: EMTALA
[2017-07-17 17:24] VITALS: BP 168/112
== END 2017-07-17 16:55 | disposition short-term general hospital (02) ==
LOC: UCCORT 15:23
DX: I20.9 Angina pectoris, unspecified (principal); I25.2 Old myocardial infarction; Z95.0 Presence of cardiac pacemaker; Z88.5 Allergy status to narcotic agent
CPT/HCPCS: 93005; 99213; G0463

== ENCOUNTER 2017-10-25 07:20 | Emergency (ER) | payer BC ==
--- OUTSIDE RECORDS SUMMARY | 2017-10-25 07:31 | XMS REPORT ---
:1940 External Reference #:[id number] Author [address] [facility] 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 Aimee Adams MD Primary Care Physician Unavailable Payers Type Date Identification Numbers Payment Provider Subscriber Commercial Effective: Policy Number: Hans Baldwin 2013 [id number] PayID: [id number] [address] [address] [place] [address] Problems Date Description Provider Status Onset: 01/30/2016 [...] Ordering Provider Isosorbide Active Tablets ER 30mg 1/2 by R06.02 Quynh Mononitrate ER 018 24HR mouth Simonetta every Justice, MSN, day CHIEF DESIGN DRAFTER I25.119 Ranexa 07/21/2017 Active Tablets ER 500mg 60tabs 1 by mouth I25.119 Quynh Simonetta 12HR twice a Justice, MSN, day CHIEF DESIGN DRAFTER Aspirin 06/23/[address] 81mg 1 by mouth R06.02 Quynh Simonetta every day Justice, MSN, CHIEF DESIGN DRAFTER Bystolic 12/31/2015 Active Tablets 20mg 30tabs 1 by mouth I47.1 Quynh Simonetta every day Justice, MSN, CHIEF DESIGN DRAFTER I47.2 I10 Nifedical XL 06/10/2015 Active Tablets ER 60mg 60tabs 1 by mouth Isrrael Figueroa 24HR daily Grace Selby, [facility] Levothyroxine Active Tablets 125mcg 1 po qd [...] to take more than 4 per day Isosorbide 06/23/2017 - Hx Tablets ER 30mg 30tabs 1 by mouth R0 Quynh Mononitrate ER 07/21/2017 24HR every day 6. Simonetta 02 Justice, MSN, CHIEF DESIGN DRAFTER I25.119 Clopidogrel 06/23/2017 Hx Tablets 75mg 30tabs 1 by mouth R06.02 Quynh Oseietta Bisulfate every day WILMAN Rendon, CHIEF DESIGN DRAFTER Bystolic 08/23/2015 - Hx Tablets 10mg 30tabs 1 by mouth I47.1 Errol Trevino MD 12/31/2015 every day I47.2 I10 Cyclobenzaprine HCL - Hx Tablets [...] 3ML Vital Signs Date Vital Result Comment 10/20/2017 BP Systolic Sitting Left Arm 124 mmHg BP Diastolic Sitting Left Arm 78 mmHg Heart Rate 67 /min Respiratory Rate 16 /min Height 67 inches 5'7" Weight 211.00 lb BMI (Body Mass Index) 33.0 kg/m2 BSA (Body Surface Area) 2.07 m2 [place] body weight in kilograms 67 O2 Saturation Level with Exercise 93 % 07/21/2017 BP Systolic Sitting Left Arm 130 mmHg BP Diastolic Sitting Left Arm 80 mmHg Heart Rate 96 /min Respiratory Rate 16 /min Height 67 inches 5'7" Weight 219.00 lb BMI (Body Mass Index) 34.3 kg/m2 BSA (Body Surface Area) 2.10 m2 [place] body weight in kilograms 67 06/23/2017 BP Systolic Sitting Right Arm 148 mmHg BP Diastolic Sitting Right Arm 80 mmHg Heart Rate 84 /min Respiratory Rate 16 /min Height 67 inches 5'7" Weight 219.00 lb BMI (Body Mass Index) 34.3 kg/m2 BSA (Body Surface Area) 2.10 m2 [place] body weight in kilograms 67 12/30/2016 BP Systolic Sitting Right Arm 142 mmHg BP Diastolic Sitting Right Arm 86 mmHg Heart Rate 84 /min Respiratory Rate 16 /min Height 67 inches 5'7" Weight 214.00 lb BMI (Body Mass Index) 33.5 kg/m2 BSA (Body Surface Area) 2.08 m2 [place] body weight in kilograms 67 07/30/2016 BP Systolic Sitting Right Arm 138 mmHg BP Diastolic Sitting Right Arm 86 mmHg Heart Rate 62 /min Respiratory Rate 16 /min Height 67 inches 5'7" Weight 214.00 lb BMI (Body Mass Index) 33.5 kg/m2 BSA (Body Surface Area) 2.08 m2 [place] body weight in kilograms 67 01/30/2016 BP [...] kg/m2 BSA (Body Surface Area) 2.08 m2 [place] body weight in kilograms 67 06/10/2015 BP [...] Procedures Date CPT Code Description Status 06/15/2017 48738 Dual Pacemaker Programming Anayisis, Review And Report Completed 12/15/2016 37613 Cardioversion/Defibrillation Dual Pacemaker Completed 08/24/2016 00470 Stress Test Interpre And Report Only Completed 08/24/2016 92611 Stress Test Physician Super Only Completed 08/24/2016 31798 Myocardial Imaging Tomographic Multiple Study AT Rest Completed Or Stress 07/30/2016 77731 EKG-Tracing And Report Completed 07/06/2016 41889 Remote Interrigation Report Interr. Single, Dual Or Completed Multiple Lead 07/06/2016 89628 Remote Interrigation Report Interr. Single, Dual Or Completed Multiple Lead 07/06/2016 17865 Pacemaker/Cardio-Defibrillator Remote Data Acquistion Completed 07/06/2016 17532 Pacemaker/Cardio-Defibrillator Remote Data Acquistion Completed 03/09/2016 62076 Pacemaker/Cardio-Defibrillator Remote Data Acquistion Completed 03/09/2016 48089 Pacemaker/Cardio-Defibrillator Remote Data Acquistion Completed 03/09/2016 42434 Remote Interrigation Report Interr. Single, Dual Or Completed Multiple Lead 03/09/2016 11270 Remote Interrigation Report Interr. Single, Dual Or Completed Multiple Lead 12/31/2015 90626 Dual Pacemaker Programming Anayisis, Review And Report Completed 12/31/2015 00991 Dual Pacemaker Programming Anayisis, Review And Report Completed 10/01/2015 47707 Exc.Other Brian.Les/0.5cm or less Completed 09/03/2015 53008 Dual Pacemaker Programming Anayisis, Review And Report Completed 09/03/2015 00897 Dual Pacemaker Programming Anayisis, Review And Report Completed 08/23/2015 33619 Dual Pacemaker Programming Anayisis, Review And Report Completed 08/23/2015 55824 EKG-Tracing And Report Completed 08/16/2015 36381 EKG Interpretation And Report Only Completed 08/15/2015 68760 Insert or replace pacemaker with electrodes, atrial & Completed ventricle 06/19/2015 19266 Holter Monitor 24HR Inter/Report Completed 06/18/2015 16748 Echocardiogram Complete Completed 06/10/2015 69830 EKG-Tracing And Report Completed 07/29/2012 51064 Anesthesia, Intracranial Surgery Not Otherwise Spec Completed 07/27/2012 46549 Echocardiogram Complete Completed 07/22/2012 72500 EKG Interpretation And Report Only Completed 11/20/2011 0000 Due To Insurance Completed 04/17/2011 19208 Asp/Injection small joint/bursa (ie-fingers,toes) Completed 03/24/2011 58745 Anesthesia, Lens Surgery Completed 03/10/2011 27640 Anesthesia, Lens Surgery Completed 09/23/2009 66628 Event Monitor Inter/Review Only Completed Encounters Type Date Location Provider CPT E/M Dx Office Visit 10/20/2017 1:40p Cardiology Office Quynh Hensley 79207 I25.119 Justice, MSN, CHIEF DESIGN DRAFTER I47.2 I47.1 I10 E78.5 I49.5 Z95.0 Office Visit 07/21/2017 10:20a Cardiology Office Quynh Rendon, 80964 I25.119 MSN, CHIEF DESIGN DRAFTER I47.2 I47.1 I10 E78.5 I49.5 Z95.0 Office Visit 06/23/2017 1:40p Cardiology Office Quynh Rendon, 59569 R06.02 MSN, CHIEF DESIGN DRAFTER I47.2 I47.1 I10 E78.5 I49.5 Z95.0 Office Visit 12/30/2016 10:00a Cardiology Office Quynh Rendon, 09768 I47.1 MSN, CHIEF DESIGN DRAFTER I49.5 I47.2 I10 E78.5 Z95.0 Office Visit 07/30/2016 9:40a Cardiology Office Quynh Rendon, 92704 R06.02 MSN, CHIEF DESIGN DRAFTER I47.2 R00.1 I10 E78.5 Z95.0 Office Visit 01/30/2016 10:20a Cardiology Office Isrrael Selby M.D., 30172 I10 FACC R00.1 Z95.0 I47.1 I47.2 Office Visit 12/31/2015 11:00a Cardiology Office Quynh Rendon, 26281 I47.1 MSN, CHIEF DESIGN DRAFTER I47.2 I10 E78.5 Z95.0 E03.9 R00.1 Office Visit 09/13/2015 11:40a Cardiology Office Isrrael Selby, 86398 R00.1 Grace, FACC I10 E78.5 Office Visit 08/23/2015 10:00a [place] [address] R00.1 I49.5 I48.0 I10 Z95.0 Office Visit 08/16/2015 1:58p Cardiology Office Isrrael Selby, 14715 R00.1 Grace, FACC R00.1 Office Visit 08/14/2015 9:41a Cardiology Office Isrrael Selby, 81677 R06.02 Grace, FACC R00.1 Office Visit 08/14/2015 11:00a Surgical Office Marek Saldana 90795 I49.5 Grace Higginbotham Office Visit 08/08/2015 11:40a Cardiology Office Isrrael Selby, 45284 R06.02 Grace, FACC R00.2 Office Visit 06/10/2015 10:00a Cardiology Office Isrrael Selby, 77972 R00.2 Grace, [facility] R94.31 R06.02 I10 Office Visit 02/13/2014 8:44a [facility] [place] [address] 562.11 Medical Center Office Visit 02/24/2010 9:30a Orthopaedic Office Jin Castillo, 65609 727.61 MRaiza, FACS 715.11 Office Visit 02/05/2010 11:00a Orthopaedic Office Jin Castillo M.D., 34167 722.4 FACS 723.4 719.41 E884.2 Plan of Care Future Appointment(s):04/22/2018 9:20 am - Isrrael Selby M.D., [facility] at Cardiology Ljltcj5010/20/2017 - Quynh Rendon, MSN, FNPI25.119 Athscl heart disease of douglas cor art w unsp ang pctrsComments:No changes. Monitor. Continue with medical management.I47.2 Ventricular tachycardiaComments:Monitor via goapjW12.1 Supraventricular tachycardiaComments:Monitor.I10 Essential ( primary) hypertensionComments:No changes.E78.5 Hyperlipidemia, unspecifiedComments:No changes. Goal of therapy: Total cholesterol <200 and LDL <70.I49.5 Sick sinus syndromeComments:Monitor.Z95.0 Presence of cardiac pacemakerComments:Will follow in our pacer clinic, per protocol.AllFollow up:Follow up visit in six months.
[2017-10-25 07:40] VITALS: BP 119/67
[2017-10-25] MEDS ORDERED: Ketorolac INJ* 30 MG/ML 1 ML VIAL IM ONE (08:14)
--- NOTE | 2017-10-25 08:23 | UC ---
Back Pain HPI - HPI Summary HPI Summary: patient has had neck and back pain for a long while---states he has seen pcp and he is DX with DDD.patient states when this flares up the only thing that really helps is Toradol. --patient identifies a specific spot in his left lateral that is tight and painful. patient already is taking muscle relaxer with out relief - History of Current Complaint Chief Complaint: UCBackPain Stated Complaint: MID/UPPER BACK/NECK PAIN Time Seen by Provider: 10/25/17 08:07 Hx Obtained From: Patient Onset/Duration: Gradual Onset, Still Present, Worse Since - that 2-3 days Timing: Constant Pain Intensity: 7 Pain Scale Used: 0-10 Numeric Back Pain: Is Discrete @ Character: Throbbing, Spasmodic, Stiffness, Burning Aggravating Factor(s): Movement Alleviating Factor(s): Nothing Associated Signs And Symptoms: Positive: Negative - Allergies/Home Medications Allergies/Adverse Reactions: Allergies Allergy/AdvReac Type Severity Reaction Status Date / Time morphine Allergy Rash Verified 10/25/17 07:38 PMH/Surg Hx/FS Hx/Imm Hx Previously Healthy: No Endocrine History: Hypothyroidism Cardiovascular History: Cardiac Disease, Pacemaker/ICD GI/ History: Gastroesophageal Reflux Psychological History: Depression - Surgical History Surgical History: Yes Surgery Procedure, Year, and Place: LEFT MASTECTOMY, AND THYMUS GLAND REMOVAL. 4- back surgeries. gallbladder. right eye surgery. bilat eye lens implants. R rotator cuff - Family History Known Family History: Positive: None, Hypertension - Social History Occupation: Retired Lives: With Family Alcohol Use: None Substance Use Type: None Smoking Status (MU): Former Smoker Type: Cigarettes Length of Time of Smoking/Using Tobacco: 15 yrs Have You Smoked in the Last Year: No When Did the Patient Quit Smoking/Using Tobacco: 15 YEARS AGO - Immunization History Most Recent Influenza Vaccination: October 2015 Most Recent Pneumonia Vaccination: 2014 Review of Systems Constitutional: Negative Skin: Negative Eyes: Negative ENT: Negative Respiratory: Negative Cardiovascular: Negative Gastrointestinal: Negative Genitourinary: Negative Motor: Negative Neurovascular: Negative Musculoskeletal: Arthralgia, Myalgia Neurological: Negative Psychological: Negative Is Patient Immunocompromised?: No All Other Systems Reviewed And Are Negative: Yes Physical Exam Triage Information Reviewed: Yes Appearance: Well-Appearing, No Pain Distress, Well-Nourished Vital Signs: Initial Vital Signs Temp 97.9 F 10/25/17 07:31 Pulse 97 10/25/17 07:31 Resp 21 10/25/17 07:31 BP 119/67 10/25/17 07:31 Pulse Ox 98 10/25/17 07:31 Vital Signs Reviewed: Yes Eye Exam: Normal Eyes: Positive: Conjunctiva Clear ENT Exam: Normal ENT: Positive: Normal ENT inspection, Hearing grossly normal. Negative: Trismus , Muffled voice, Hoarse voice Dental Exam: Normal Neck exam: Normal Neck: Positive: Supple, Nontender, No Lymphadenopathy Respiratory Exam: Normal Respiratory: Positive: Chest non-tender, No respiratory distress, No accessory muscle use Cardiovascular Exam: Normal Cardiovascular: Positive: RRR, Pulses Normal, Brisk Capillary Refill Musculoskeletal Exam: Normal Musculoskeletal: Positive: Strength Intact, ROM Intact, No Edema Neurological Exam: Normal Neurological: Positive: Alert, Muscle Tone Normal Psychological Exam: Normal Skin Exam: Normal Back Pain Course/Dx - Course Course Of Treatment: toradol im/po follow with pcp---continue heat muscle relaxar and exercise - Differential Dx/Diagnosis Provider Diagnoses: acute exacerbation of chronic neck pain Discharge - Sign-Out/Discharge Documenting (check all that apply): Patient Departure All imaging exams completed and their final reports reviewed: Yes - Discharge Plan Condition: Stable Disposition: HOME Prescriptions: Ketorolac TAB * [Toradol TAB *] 10 mg PO BID #10 tab Patient Education Materials: Chronic Back Pain (ED) Referrals: Aimee Adams MD [Primary Care Provider] - 3 Days - Billing Disposition and Condition Condition: STABLE Disposition: Home
== END 2017-10-25 08:38 | disposition home or self-care (01) ==
LOC: UCCORT 07:20
DX: Z88.5 Allergy status to narcotic agent (principal); M54.2 Cervicalgia; G89.29 Other chronic pain; M50.30 Other cervical disc degeneration, unspecified cervical region; Z87.891 Personal history of nicotine dependence
CPT/HCPCS: 96372; 99212; G0463; J1885

== ENCOUNTER 2018-08-20 07:00 | Emergency (ER) | payer BC ==
[2018-08-20 07:18] VITALS: BP 122/59
--- NOTE | 2018-08-20 07:32 | UC ---
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, wheeze, sinus pressure, post nasal drip and tactile fever No CP or SOB - History of Current Complaint Chief Complaint: UCRespiratory Stated Complaint: COUGH,CONGESTION Time Seen by Provider: 08/20/18 07:19 Hx Obtained From: Patient Onset/Duration: Gradual Onset, Lasting Days Timing: Constant Severity Initially: Mild Severity Currently: Severe Pain Intensity: 9 - when swallowing Pain Scale Used: 0-10 Numeric Character: Cough: Productive - at times Alleviating Factors: Nothing Associated Signs And Symptoms: Positive: Fever, Nasal Congestion, Hoarseness - Allergies/Home Medications Allergies/Adverse Reactions: Allergies Allergy/AdvReac Type Severity Reaction Status Date / Time bee venom protein (honey bee) Allergy Rash, Verified 08/20/18 07:13 Swelling morphine Allergy Rash Verified 08/20/18 07:13 Home Medications: Home Medications Metoprolol Succinate XL TAB* [Toprol XL TAB*] 100 mg PO DAILY 08/20/18 [History Confirmed 08/20/18] PMH/Surg Hx/FS Hx/Imm Hx Endocrine History: Diabetes, Hyperthyroidism - Grave's disease, Dyslipidemia Cardiovascular History: Hypertension Respiratory History: COPD GI/ History: Gastroesophageal Reflux - Surgical History Surgical History: Yes Surgery Procedure, Year, and Place: LEFT MASTECTOMY, AND THYMUS GLAND REMOVAL. 4- back surgeries. gallbladder. right eye surgery. bilat eye lens implants. R rotator cuff - Family History Known Family History: Positive: None, Hypertension - Social History Alcohol Use: None Substance Use Type: None Smoking Status (MU): Former Smoker Type: Cigarettes Length of Time of Smoking/Using Tobacco: <1/4 PPD x 15 Years Have You Smoked in the Last Year: No When Did the Patient Quit Smoking/Using Tobacco: ~1995 - Immunization History Most Recent Influenza Vaccination: October 2015 Most Recent Pneumonia Vaccination: 2014 Review of Systems All Other Systems Reviewed And Are Negative: Yes Constitutional: Positive: Fever, Fatigue Skin: Positive: Negative Eyes: Positive: Negative ENT: Positive: Sore Throat, Nasal Discharge, Sinus Congestion, Sinus Pain/ Tenderness Respiratory: Positive: Cough Cardiovascular: Positive: Negative Gastrointestinal: Positive: Negative Genitourinary: Positive: Negative Motor: Positive: Negative Neurovascular: Positive: Negative Musculoskeletal: Positive: Negative Neurological: Positive: Negative Psychological: Positive: Negative Physical Exam Triage Information Reviewed: Yes Appearance: Well-Appearing, No Pain Distress, Well-Nourished Vital Signs: Initial Vital Signs Temp 98.7 F 08/20/18 07:10 Pulse 64 08/20/18 07:10 Resp 18 08/20/18 07:10 BP 122/59 08/20/18 07:10 Pulse Ox 97 08/20/18 07:10 Vital Signs Reviewed: Yes Eyes: Positive: Conjunctiva Clear, Other: - proptosis ENT: Positive: Pharyngeal erythema, Nasal congestion, TMs normal - PET right, Hoarse voice, Uvula midline. Negative: Hearing grossly normal, Nasal drainage, Trismus, Muffled voice Neck: Positive: Supple, Nontender, Enlarged Nodes @ - ant cerv Respiratory: Positive: No respiratory distress, No accessory muscle use, Wheezing - with forced epsiration Cardiovascular: Positive: RRR Musculoskeletal: Positive: ROM Intact, No Edema Neurological: Positive: Alert Psychological Exam: Normal Skin Exam: Normal Diagnostics - Radiology No standard instances Radiology Interpretation Completed By: Radiologist Summary of Radiographic Findings: #. Suggest repeat exam with nipple markers to exclude presence of a true pulmonary nodule. #. Stigmata of emphysema. #. No acute cardiopulmonary process evident. maker confirms nipple Respiratory Course/Dx - Differential Dx/Diagnosis Provider Diagnosis: COPD with acute exacerbation, Pharyngitis Discharge - Sign-Out/Discharge Documenting (check all that apply): Patient Departure All imaging exams completed and their final reports reviewed: Yes - Discharge Plan Condition: Stable Disposition: HOME Prescriptions: Amoxicillin PO (*) [Amoxicillin 875 MG (*)] 875 mg PO BID #14 tab predniSONE [Deltasone 20 MG TAB] 40 mg PO DAILY #8 tab Patient Education Materials: Pharyngitis (ED), Acute Bronchitis (ED), How to Use a Metered-Dose Inhaler and a Spacer (ED) Referrals: Aimee Adams MD [Primary Care Provider] - 3 Days (recheck in 3 days if throat not better) - Billing Disposition and Condition Condition: STABLE Disposition: Home
[2018-08-20] MEDS ORDERED: Albuterol HFA INHALER* 8 gm MDI INH ONE (08:04)
[2018-08-20] MEDS ORDERED: predniSONE TAB* 20 MG PO ONE (08:05)
== END 2018-08-20 08:41 | disposition home or self-care (01) ==
LOC: UCCORT 07:00
DX: J44.1 Chronic obstructive pulmonary disease with (acute) exacerbation (principal); J02.9 Acute pharyngitis, unspecified; E11.9 Type 2 diabetes mellitus without complications; I10 Essential (primary) hypertension; Z87.891 Personal history of nicotine dependence
CPT/HCPCS: 71045; 71046; 87651; 99213; A9270-GY; G0463; J7512